=== PATIENT | male | born 1955 | race Caucasian/White ===

== ENCOUNTER 2017-09-18 16:44 | Emergency (ER) | payer SELFPAY ==
[2017-09-18 16:45] VITALS: BP 126/91; PULSE 88; RESP 18; TEMP 36.9; O2SAT 96; BMI 23.1
[2017-09-18 17:01] LABS: Bedside Glucose 483 mg/dL (70-110)
--- NOTE | 2017-09-18 17:13 | EKG12_ITS ---
Test Reason : HYPERGLYCEMIA Blood Pressure : / mmHG Vent. Rate : 069 BPM Atrial Rate : 069 BPM P-R Int : 166 ms QRS Dur : 096 ms QT Int : 414 ms P-R-T Axes : 034 025 063 degrees QTc Int : 443 ms Normal sinus rhythm Inferior infarct , age undetermined Abnormal ECG Confirmed by CARLI POLANCO, OXANA ([id number]), metropolitan editor TRAE DELANEY ([id number]) on 09/20/2017 2:14:04 PM Referred By: HARDY Confirmed By:OXANA BOYCE MD
[2017-09-18] MEDS: Aspirin 81 MG TAB.CHEW 324 MG PO (17:19)
[2017-09-18] MEDS: 0.9% Normal Saline 1,000 ML 1000 ML IV (17:19)
--- NOTE | 2017-09-18 17:25 | RAD_ITS ---
STUDY: X-RAY CHEST REASON FOR EXAM: Male, 62 years old. Chest pain TECHNIQUE: Single AP portable view of the chest. COMPARISON: None. FINDINGS: The lungs are clear and expanded. There is no demonstrated pleural abnormality. Normal size heart. Normal mediastinum and brianna. Normal visualized pulmonary arteries. Normal visualized aortic arch and descending thoracic aorta. Normal visualized thoracic spine. Normal visualized ribs, clavicles, and shoulders. There is no demonstrated abnormality of the visualized soft tissue structures of the upper abdomen. RAD/Chest 1 View (Portable) IMPRESSION: Normal x-ray examination of the chest. Electronically Signed: Sedrick Eubanks DO at 18:19 EDT Tel , Service support ,
[2017-09-18 17:45] VITALS: BP 125/90; PULSE 60; RESP 18; O2SAT 97
[2017-09-18 18:00] VITALS: BP 133/86; PULSE 70; RESP 13; O2SAT 96
[2017-09-18 18:12] LABS: Anion Gap 10 (5-15); BUN 17 mg/dL (7-18); BUN/Creat Ratio 14.7 RATIO (10-20); Calcium,Total 9.5 mg/dL (8.5-10.1); Chloride 93 mmol/L (98-107); Creatinine, Serum 1.16 mg/dL (0.70-1.30); EST Glomerular Filtration Rate 68 mL/min (>60); Est Glom Filt Rate - Afr Amer 82 mL/min (>60); Estimated Creatinine Clearance 69.42 ml/min; Glucose 476 mg/dL (74-106); Potassium 4.1 mmol/L (3.5-5.1); Sodium Level 131 mmol/L (136-145)
[2017-09-18 18:26] LABS: Absolute Lymphocyte Count 1.56 X10^3/ul (0.83-4.51); Absolute Neutrophil Count 4.9 X10^3/uL (2.0-7.7); Basophil# 0.05 X10^3/uL; Basophil% 0.7 % (0-1); Eosinophil# 0.28 X10^3/uL; Eosinophils% 3.9 % (0-5); Hematocrit 40.5 % (40-54); Hemoglobin 14.6 g/dl (13.0-16.5); Lymphocyte # 1.56 X10^3/ul (4.0); Lymphocyte % 21.7 % (19-41); Mean Corpuscular Hgb 31.6 pg (27.0-32.0); Mean Corpuscular Volume 87.7 fL (80-94); Mean Platelet Vol. 10.5 fl (6.2-12.0); Monocyte% 5.6 % (0-10); Neutrophil # 4.88 X10^3/uL (2.7-7.7); Neutrophil % 67.7 % (47-70); POSITIVE COUNT NO; POSITIVE DIFFERENTIAL NO; POSITIVE MORPHOLOGY NO; Platelet Count 216 K/mm3 (150-450); RBC Distribution Width CV 11.8 % (11.6-14.6); RBC Distribution Width SD 37.3 fl (35.1-43.9); Red Blood Count 4.62 M/mm3 (4.6-6.2); White Blood Count 7.2 K/mm3 (4.4-11.0)
[2017-09-18 18:51] LABS: BNP,B-Type NATRIURETIC PEPTIDE 9.3 pg/mL (0-100)
--- NOTE | 2017-09-18 18:59 | ED.VISSUMM ---
- ER Visit Summary Date of Service: 09/18/17 Chief Complaint: Hyperglycemia History of Present Illness: The patient is a 62 M who presents with high blood sugar. He has been having this for the past 3 days. He had blood work on Monday and it shows elevated blood glucose. He states he has had elevated blood glucose for a while but he has not been back to the doctor to treat it. He denies any pain. He has had some intermittent shortness of breath. He has been tiring easily. Physical Examination: Vital signs reviewed. HEENT exam unremarkable. Heart is regular rate and rhythm without murmurs. Lungs are clear to auscultation. Abdomen is soft and nontender. Extremities reveal no edema. Skin exam normal. Neurologic exam normal. Test Results: Labs show sodium of 131 and a glucose of 476. EKG, chest x-ray and troponin are normal Emergency Department Course and Treatment: The patient has had elevated blood sugars for a while but has not followed up with his doctor. I will give him aspirin and insulin here. I will start him on metformin as he does not present himself into the healthcare system often. I will start medications now so he will be compliant with them. He actually does have a follow-up on Monday with the clinic. Treatment Plan: [] Disposition: Discharged Impression: Hyperglycemia Newly diagnosed type 2 DM This note was generated with [employer] dictation software. It may contain incorrect words, spelling, and punctuation that were not noted in review of the chart prior to signing ED Disposition - Plan for ED Patient: Chief Complaint: Hyperglycemia
--- NOTE | 2017-09-18 19:02 | ED.DEP ---
ED Disposition - Plan for ED Patient: Disposition: Home or Assisted Living Chief Complaint: Hyperglycemia Instructions: ED Hyperglycemia New Susp Diabetes Prescriptions: Metformin HCl [Glucophage] 500 mg PO BIDCM #60 tab Referrals: Ines Celaya [NON-STAFF] -
[2017-09-18 19:10] VITALS: BP 141/89; PULSE 73; RESP 17; O2SAT 98
[2017-09-18 19:25] VITALS: BP 141/89; PULSE 72; RESP 15; O2SAT 99
--- NOTE | 2017-09-18 20:25 | ED.RN ---
REVIEWED D/C INSTRUCTIONS, FOLLOW UP CARE, PRESCRIPTION, AND S/S THAT WOULD WARRANT A RETURN TO THE ED WITH PT. PT VERBALIZED AN UNDERSTANDING AND DENIES FURTHER QUESTIONS FOR THIS RN. PT SKIN P/W/D, RESP EVEN AND UNLABORED, PT A&O X 3, NO DISTRESS NOTED. PT AMBULATED OUT OF ED, GAIT STEADY.
== END 2017-09-18 20:26 | disposition home or self-care (01) ==
PROVIDERS: Emergency Provider Emergency Medicine
DX: E11.65 Type 2 diabetes mellitus with hyperglycemia (principal); E03.9 Hypothyroidism, unspecified; Z72.0 Tobacco use; Z79.899 Other long term (current) drug therapy
CPT/HCPCS: 71045; 80048; 82962; 83880; 84484; 85025; 93005; 96360; 96361; 99285; J7030; A4216

== ENCOUNTER 2018-01-27 12:14 | Emergency (ER) | payer MEDICAID, SELFPAY ==
[2018-01-27 12:15] VITALS: BP 161/88; PULSE 58; RESP 14; TEMP 36.8; O2SAT 98; BMI 25.5
[2018-01-27 12:30] LABS: Bedside Glucose > 500 mg/dL (70-110)
--- NOTE | 2018-01-27 12:30 | NURSING ---
CALLED [facility] FOR A MED LIST . LEFT MESSAGE
--- NOTE | 2018-01-27 12:42 | ED.VISSUMM ---
- ER Visit Summary Date of Service: 01/27/18 Chief Complaint: Blood sugar History of Present Illness: The patient is a 62 M who is out of his insulin. He is not sure what insulin he takes. He gets it from a clinic and has free samples. He has been out for days. He was also on metformin but is unsure the dose. He has not had that as well. His blood sugars have been reading high. He has no other symptoms or complaints. Physical Examination: Afebrile vital signs unremarkable. Alert and oriented. No acute distress. Mucous members moist. Heart regular. Lungs clear. Abdomen soft. Skin appears normal. Test Results: Blood sugar high Emergency Department Course and Treatment: Bedside glucose was high, greater than 600. He was treated with IV fluids. We will check lab work. CBC normal. Sodium 129, chloride 91, glucose 726. Ketones small. Patient treated with 2 L of normal saline. Repeat glucose was 511. He received additional 2 L. Patient would like to try to go home. I spoke with the hospitalist to help guide care. He received 30 units of Humalog. Oncoming ED physician will recheck glucose at 430. If glucose is acceptable, the patient may be discharged. I discussed his treatment plan with the hospitalist. Will start him on metformin 1000 mg twice a day, tresiba 50 units at bedtime, and regular insulin 15 units 3 times a day with meals. Patient has supplies and will monitor his sugar at home. Patient declined admission. If he has difficulty controlling his blood sugar or any other issues, he should return right away. Otherwise follow-up with his clinic on Monday. Treatment Plan: As above Disposition: Discharge pending further reevaluation Impression: 1. Hyperglycemia This note was generated with [employer] dictation software. It may contain incorrect words, spelling, and punctuation that were not noted in review of the chart prior to signing ED Disposition - Plan for ED Patient: Chief Complaint: Hyperglycemia Referrals: Corby Singletary,Ines Celaya [Primary Care Provider] -
[2018-01-27] MEDS: 0.9% Normal Saline 1,000 ML 1000 ML IV ×2 (12:46→12:47)
[2018-01-27 12:55] LABS: Absolute Lymphocyte Count 0.89 X10^3/ul (0.83-4.51); Absolute Neutrophil Count 5.6 X10^3/uL (2.0-7.7); Basophil# 0.03 X10^3/uL; Basophil% 0.4 % (0-1); Eosinophil# 0.23 X10^3/uL; Eosinophils% 3.2 % (0-5); Hematocrit 42.4 % (40-54); Lymphocyte # 0.89 X10^3/ul (4.0); Lymphocyte % 12.3 % (19-41); Mean Corp Hgb Conc 35.4 g/gl (32-36); Mean Corpuscular Hgb 31.1 pg (27.0-32.0); Mean Corpuscular Volume 87.8 fL (80-94); Mean Platelet Vol. 9.9 fl (6.2-12.0); Monocyte# 0.48 X10^3/uL; Monocyte% 6.6 % (0-10); Neutrophil # 5.61 X10^3/uL (2.7-7.7); Neutrophil % 77.4 % (47-70); Platelet Count 220 K/mm3 (150-450); RBC Distribution Width CV 11.7 % (11.6-14.6); RBC Distribution Width SD 37.5 fl (35.1-43.9); Red Blood Count 4.83 M/mm3 (4.6-6.2); White Blood Count 7.3 K/mm3 (4.4-11.0)
[2018-01-27 12:58] LABS: POSITIVE COUNT NO; POSITIVE DIFFERENTIAL NO; POSITIVE MORPHOLOGY NO
--- NOTE | 2018-01-27 13:06 | ED.RN ---
LAB CALLED [facility] GLUCOSE 726. DR BECKFORD
[2018-01-27 13:07] LABS: Anion Gap 9 (5-15); BUN 17 mg/dL (7-18); BUN/Creat Ratio 15.5 RATIO (10-20); Calcium,Total 8.8 mg/dL (8.5-10.1); Chloride 91 mmol/L (98-107); EST Glomerular Filtration Rate 72 mL/min (>60); Est Glom Filt Rate - Afr Amer 87 mL/min (>60); Estimated Creatinine Clearance 68.74 ml/min; Glucose 726 mg/dL (74-106); Potassium 4.7 mmol/L (3.5-5.1); Sodium Level 129 mmol/L (136-145)
[2018-01-27 13:25] LABS: Allen Test POS; Base Excess -1 mmol/L (-2 to +2); Bicarbonate 23.9 mmol/L (22-26); Blood Gas Specimen Type ART; O2 Delivery Device Room Air; PO2 67 mmHG (75-100); SITE L Radial; SO2 92 % (95-99); Time Given 1305; Total Carbon Dioxide 25 mmol/L; pCO2 41.8 mmHg (35-45); pH 7.37 (7.35-7.45)
[2018-01-27 14:25] VITALS: RESP 18
[2018-01-27 14:26] LABS: Bedside Glucose > 500 mg/dL (70-110)
[2018-01-27] MEDS: 0.9% Normal Saline 1,000 ML 999 ML IV ×2 (14:45)
[2018-01-27] MEDS: Insulin Lispro 100 UNIT/ML INSULN.PEN 30 UNIT SC (14:55)
--- NOTE | 2018-01-27 15:17 | DCINST.ED_ITS ---
ED Disposition - Plan for ED Patient: Chief Complaint: Hyperglycemia Instructions: ED Hyperglycemia Diabetic Prescriptions: Insulin Degludec [Tresiba Flextouch U-100] 50 unit SUBCUT QHS 30 Days #1500 unit Metformin HCl 1,000 mg PO BID 30 Days #60 tab Insulin Regular, Human [Humulin R] 15 unit SUBCUT TID 30 Days #1350 unit Referrals: [facility],Ines Celaya [Primary Care Provider] -
[2018-01-27 16:26] LABS: Bedside Glucose 318 mg/dL (70-110)
[2018-01-27 16:27] VITALS: PULSE 82; RESP 22; O2SAT 97
== END 2018-01-27 16:33 | disposition home or self-care (01) ==
LOC: ED 13:05
PROVIDERS: Emergency Provider Emergency Medicine
DX: E11.65 Type 2 diabetes mellitus with hyperglycemia (principal); Z79.4 Long term (current) use of insulin
CPT/HCPCS: 36600; 80048; 82009; 82803; 82962; 85025; 96360; 96361; 99284; J7030

== ENCOUNTER → 2019-09-24 | Outpatient (CLI) | payer MEDICARE, MEDICAID, SELFPAY ==
[2019-09-24 11:58] VITALS: BMI 25.5
[2019-09-24 15:49] LABS: ALB/GLOB Ratio 1.2 RATIO (0.9-2.4); AST(SGOT) 17 U/L (15-37); Alanine Aminotransfer ALT/SGPT 24 U/L (16-61); Albumin, Serum 3.7 g/dL (3.2-5.0); Alkaline Phosphatase 104 U/L (45-117); Anion Gap 3 (5-15); BUN 21 mg/dL (7-18); BUN/Creat Ratio 20.8 RATIO (10-20); Calcium,Total 8.9 mg/dL (8.5-10.1); Chloride 102 mmol/L (98-107); Cholesterol 185 mg/dL (200); Creatinine, Serum 1.01 mg/dL (0.70-1.30); EST Glomerular Filtration Rate 79 mL/min (>60); Est Glom Filt Rate - Afr Amer 95 mL/min (>60); Globulin 3.1 g/dL (2.2-4.2); Glucose 143 mg/dL (74-106); High Density Lipoprotein 43 mg/dL; Potassium 3.7 mmol/L (3.5-5.1); Protein, Total 6.8 g/dL (6.4-8.2); Sodium Level 136 mmol/L (136-145); T4 Free Direct 1.36 ng/dL (0.76-1.46); Thyroid Stim Hormone (TSH) 0.39 uIU/mL (0.358-3.74); Triglycerides 128 mg/dL; Very Low Density Lipoprotein 26 mg/dL (5-40)
[2019-09-24 15:59] LABS: Microalbumin,Random Urine 12.3 mg/L (NO RANGE EST.)
== END | disposition home or self-care (01) ==
LOC: BIMLAB 12:02
PROVIDERS: PCP Nurse Practitioner Family; Referring Provider Internal Medicine Endocrinology, Diabetes & Metabolism; Visit Provider Internal Medicine Endocrinology, Diabetes & Metabolism
DX: E03.9 Hypothyroidism, unspecified (principal); E11.9 Type 2 diabetes mellitus without complications
CPT/HCPCS: 36415; 80053; 80061; 82043; 82570; 84439; 84443

== ENCOUNTER → 2020-08-31 11:48 | Outpatient (CLI) | payer MEDICARE, MEDICAID, SELFPAY ==
[2020-08-31 11:35] VITALS: BMI 25.9
[2020-08-31 15:27] LABS: ALB/GLOB Ratio 1.1 RATIO (0.9-2.4); AST(SGOT) 18 U/L (15-37); Alanine Aminotransfer ALT/SGPT 26 U/L (16-61); Albumin, Serum 3.6 g/dL (3.2-5.0); Alkaline Phosphatase 103 U/L (45-117); Anion Gap 10 (5-15); BUN 22 mg/dL (7-18); BUN/Creat Ratio 16.1 RATIO (10-20); Calcium,Total 9.4 mg/dL (8.5-10.1); Chloride 99 mmol/L (98-107); Cholesterol 190 mg/dL (200); Creatinine, Serum 1.37 mg/dL (0.70-1.30); EST Glomerular Filtration Rate 55 mL/min (>60); Est Glom Filt Rate - Afr Amer 67 mL/min (>60); Globulin 3.3 g/dL (2.2-4.2); Glucose 278 mg/dL (74-106); High Density Lipoprotein 43 mg/dL; Potassium 4.4 mmol/L (3.5-5.1); Protein, Total 6.9 g/dL (6.4-8.2); Sodium Level 137 mmol/L (136-145); T4 Free Direct 0.97 ng/dL (0.76-1.46); Triglycerides 143 mg/dL; Very Low Density Lipoprotein 29 mg/dL (5-40)
[2020-08-31 15:29] LABS: Microalbumin,Random Urine 10.4 mg/L (NO RANGE EST.); Microalbumin:Creatinine Ratio 7.7 mg/g CRE (<30 mg/g CRE)
== END ==
PROVIDERS: Referring Provider Internal Medicine Endocrinology, Diabetes & Metabolism; Visit Provider Internal Medicine Endocrinology, Diabetes & Metabolism
DX: E03.9 Hypothyroidism, unspecified (principal); E11.65 Type 2 diabetes mellitus with hyperglycemia; Z79.4 Long term (current) use of insulin
CPT/HCPCS: 36415; 80053; 80061; 82043; 82570; 84439; 84443

== ENCOUNTER 2021-06-09 12:06 | Outpatient (CLI) | payer MEDICARE, MEDICAID, SELFPAY ==
[2021-06-09 12:35] LABS: Absolute Lymphocyte Count 1.38 X10^3/uL (0.83-4.51); Basophil# 0.04 X10^3/uL; Basophil% 0.6 % (0-1); Eosinophil# 0.16 X10^3/uL; Eosinophils% 2.3 % (0-5); Hematocrit 43.6 % (40-54); Hemoglobin 15.9 g/dL (13.0-16.5); Lymphocyte # 1.38 X10^3/ul (0.83-4.51); Lymphocyte % 19.4 % (19-41); Mean Corp Hgb Conc 36.5 g/dL (32-36); Mean Corpuscular Hgb 31.1 pg (27.0-32.0); Mean Corpuscular Volume 85.3 fL (80-94); Mean Platelet Vol. 9.4 fl (6.2-12.0); Monocyte# 0.47 X10^3/uL; Monocyte% 6.6 % (0-10); NRBC Flagged by Analyzer 0 % (0-5); Neutrophil # 5.04 X10^3/uL (2.7-7.7); Neutrophil % 70.8 % (47-70); Platelet Count 362 K/mm3 (150-450); RBC Distribution Width CV 11.7 % (11.6-14.6); RBC Distribution Width SD 36.3 fl (35.1-43.9); Red Blood Count 5.11 M/mm3 (4.6-6.2); White Blood Count 7.1 K/mm3 (4.4-11.0)
[2021-06-09 12:58] LABS: Vitamin B12 367 pg/mL (211-911); Vitamin D,25 Hydroxy 19.3 ng/mL
[2021-06-09 13:06] LABS: ALB/GLOB Ratio 0.9 RATIO (0.9-2.4); AST(SGOT) 18 U/L (15-37); Alanine Aminotransfer ALT/SGPT 25 U/L (16-61); Albumin, Serum 3.3 g/dL (3.2-5.0); Alkaline Phosphatase 108 U/L (45-117); Anion Gap 6 (5-15); BUN 18 mg/dL (7-18); BUN/Creat Ratio 14.4 RATIO (10-20); Chloride 99 mmol/L (98-107); Cholesterol 211 mg/dL (200); Creatinine, Serum 1.25 mg/dL (0.70-1.30); EST Glomerular Filtration Rate 61 mL/min (>60); Est Glom Filt Rate - Afr Amer 74 mL/min (>60); Globulin 3.5 g/dL (2.2-4.2); Glucose 461 mg/dL (74-106); High Density Lipoprotein 38 mg/dL; Potassium 4.1 mmol/L (3.5-5.1); Protein, Total 6.8 g/dL (6.4-8.2); Sodium Level 132 mmol/L (136-145); Triglycerides 474 mg/dL
[2021-06-09 13:07] LABS: Hemoglobin A1c 11.5 % (3.8-5.6)
== END 2021-06-09 23:59 | disposition home or self-care (01) ==
LOC: LAB 12:11
DX: E11.65 Type 2 diabetes mellitus with hyperglycemia (principal); Z13.21 Encounter for screening for nutritional disorder
CPT/HCPCS: 36415; 80053; 80061; 82306; 82607; 83036; 84443; 85025